=== PATIENT | female | born 1995 | race Caucasian/White ===

== ENCOUNTER 2016-08-08 21:15 | Emergency (ER) | payer OTHER ==
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
[2016-08-08 22:25] VITALS: BP 110/74; PULSE 70; RESP 14; TEMP 98.4; O2SAT 96
== END 2016-08-08 22:26 | disposition home or self-care (01) ==
DX: S83.92XA Sprain of unspecified site of left knee, initial encounter (principal); W22.8XXA Striking against or struck by other objects, initial encounter; Y99.8 Other external cause status
CPT/HCPCS: L1830